=== PATIENT | male | born 2000 | race Caucasian/White ===

== ENCOUNTER 2023-10-29 03:04 | Emergency (ER) | payer BC, OTHER ==
[2023-10-29] MEDS ORDERED: Lidocaine 1% w/Epinephrine 1:100K 20 ML VIAL ONE (03:31)
[2023-10-29] MEDS ORDERED: Ondansetron PF 4 MG/2 ML Vial ONE ×2 (04:31→07:48)
[2023-10-29] MEDS ORDERED: Morphine 2 MG/ML VIAL ONE (04:31)
[2023-10-29] MEDS ORDERED: Morphine 4 MG/ML VIAL ONE (07:48)
== END 2023-10-29 07:43 | disposition home or self-care (01) ==
LOC: ERS 03:04
DX: S02.2XXA Fracture of nasal bones, initial encounter for closed fracture (principal); S02.32XA Fracture of orbital floor, left side, initial encounter for closed fracture; S02.19XA Other fracture of base of skull, initial encounter for closed fracture; S01.412A Laceration without foreign body of left cheek and temporomandibular area, initial encounter; S01.511A Laceration without foreign body of lip, initial encounter; S01.112A Laceration without foreign body of left eyelid and periocular area, initial encounter; F17.290 Nicotine dependence, other tobacco product, uncomplicated; Y04.0XXA Assault by unarmed brawl or fight, initial encounter
CPT/HCPCS: 40650; 70450; 70486; 72125; 96374; 96375; 96376; J2270; J2272; J2405

== ENCOUNTER 2023-11-04 16:28 | Emergency (ER) | payer BC, OTHER | END 2023-11-04 18:56 | disposition home or self-care (01) | LOC: ERS 16:28 | DX: S01.112D Laceration without foreign body of left eyelid and periocular area, subsequent encounter (principal) ==